=== PATIENT | male | born 1940 | race African-American/Black ===

== ENCOUNTER 2018-04-02 12:04 | Inpatient (IN) | payer MEDICARE, OTHER ==
[~2018-04-02] VITALS: Ht 188 cm; Wt 104.0 kg
[2018-04-02] MEDS ORDERED: SODIUM CHLORIDE 0.9% 1,000 ML IV ONE (13:24)
[2018-04-02 13:46] LABS: Basophils # (auto) 0 uL; Basophils % (auto) 0.3 % (0.0-2.0); Eosinophils # (auto) 0 uL; Eosinophils % (auto) 0.6 % (0.0-7.0); Hematocrit 38.2 % (41.0-53.0); Hemoglobin 12.7 g/dL (13.5-17.5); Lymphocytes # (auto) 0.6 uL; Lymphocytes % (auto) 12.9 % (10.0-50.0); Mean Corpuscular Hemoglobin 30.5 pg (28.0-32.0); Mean Corpuscular Hgb Conc. 33.2 g/dL (32.0-36.0); Mean Corpuscular Volume 91.8 fL (80.0-100.0); Monocytes # (auto) 0.4 uL; Monocytes % (auto) 7.6 % (0.0-12.0); Neutrophils # (auto) 3.7 uL; Neutrophils % (auto) 78.6 % (37.0-80.0); Nucleated Red Blood Cells % 0.3 %; Platelet Count (auto) 148 10^3/uL (140-450); Red Blood Cells 4.16 10^6/uL (4.5-5.90); Red Cell Distribution Width 14.9 % (11.8-14.3); White Blood Cell 4.6 10^3/uL (4.4-10.8)
[2018-04-02 13:59] LABS: INR 1.04 (0.9-1.15); Partial Thromboplastin Time 22.5 sec (23.78-33.04); Prothrombin Time 11.1 sec (9.27-12.13)
[2018-04-02 14:04] LABS: Chloride 112 mmol/L (98-107); Potassium 3.6 mmol/L (3.5-5.1); Sodium 145 mmol/L (136-145)
[2018-04-02 14:08] LABS: Alanine Aminotransferase 16 U/L (16-61); Albumin 3.4 g/dL (3.4-5.0); Anion Gap 6 (5-15); Aspartate Aminotransferase 11 U/L (15-37); BUN/Creatinine Ratio 7.8; Blood Urea Nitrogen 10 mg/dL (7-18); Calcium 8.2 mg/dL (8.5-10.1); Carbon Dioxide 27 mmol/L (21-32); GFR African American 69 mL/min; GFR Non-African American 57 mL/min; Glucose 125 mg/dL (74-106)
[2018-04-02 14:14] LABS: Alkaline Phosphatase 48 U/L (45-117); Bilirubin, Total 0.5 mg/dL (0.2-1.0)
[2018-04-02] MEDS ORDERED: cefTRIAXone 1GM/10ml IVPUSH 10 ML IV ONE (14:45)
[2018-04-02] MEDS ORDERED: DEXTROSE (50%) 50ML SYRG IV PRN (15:00)
[2018-04-02] MEDS ORDERED: DIPHENOXYLATE W/ATROPINE 2.5 MG TAB PO PRN (15:00)
[2018-04-02] MEDS ORDERED: PSEUDOEPHEDRINE HCL 30 MG TAB PO PRN (15:00)
[2018-04-02] MEDS ORDERED: SODIUM CHLORIDE 0.9% 1,000 ML IV SCH (15:02)
[2018-04-02] MEDS ORDERED: ONDANSETRON HCL 4 MG/2 ML VIAL IV PRN (15:15)
[2018-04-02] MEDS ORDERED: DOCUSATE SOD 100 MG CAP PO PRN (15:15)
[2018-04-02] MEDS ORDERED: MORPHINE SULFATE 4 MG/ML SYR/VIAL IV PRN (15:15)
[2018-04-02] MEDS ORDERED: HYDROcodone-ACET 5/325MG TAB PO PRN (15:15)
[2018-04-02] MEDS ORDERED: ASPirin-EC 81 mg tab PO ONE ×3 (15:15→16:00)
[2018-04-02] MEDS ORDERED: ACETAMINOPHEN 325 MG TAB PO PRN (15:15)
[2018-04-02] MEDS ORDERED: NITROGLYCERIN 0.4 MG SL TAB SL PRN (15:15)
[2018-04-02] MEDS ORDERED: TEMAZEPAM 15 MG CAP PO PRN (15:15)
[2018-04-02] MEDS ORDERED: POTASSIUM EFFERVESENT TAB 25 MEQ PO ONE (15:45)
[2018-04-02] MEDS ORDERED: DABIGATRAN 75 MG CAP PO ONE (15:45)
[2018-04-02] MEDS ORDERED: FAMOTIDINE 20 MG TAB PO ONE (15:45)
[2018-04-02] MEDS ORDERED: LOPERAMIDE HCL 2 MG CAP PO PRN (15:45)
[2018-04-02] MEDS ORDERED: ENOXAPARIN SOD 40 MG/0.4 ML SYRINGE SC ONE (15:45)
[2018-04-02] MEDS: InsuLIN REG 1unit/0.01ml Soln (100units/ml) SC SCH ×2 (16:59→21:42)
[2018-04-02] MEDS: ACCU-CHEK COMFORT CURVE STRIP VI SCH ×2 (17:00→21:42)
[2018-04-02 20:01] LABS: Folate (Folic Acid) 11.39 ng/mL (5.38-24)
[2018-04-02] MEDS: SODIUM CHLORIDE 0.9% 1,000 ML IV SCH (20:26)
[2018-04-02 20:50] VITALS: BP 158/83
[2018-04-02] MEDS: DONEPEZIL HYDROCHLORIDE 5 MG TAB PO SCH (21:37)
[2018-04-02] MEDS: ATORVASTATIN 20 MG TAB PO SCH (21:37)
[2018-04-02 22:00] VITALS: BP 158/83
[2018-04-02] MEDS: DABIGATRAN 75 MG CAP PO SCH (22:17)
[2018-04-02] MEDS: cloNIDine HCL 0.1 MG TAB PO PRN (23:04)
[2018-04-03] VITALS (7 sets, daily range): BP systolic 140–165; BP diastolic 75–86
[2018-04-03] MEDS ORDERED: POM (00:06)
[2018-04-03] MEDS ORDERED: FAMO-12 PO (00:06)
[2018-04-03] MEDS ORDERED: PSEU30TA3 PO (00:06)
[2018-04-03] MEDS ORDERED: DONETAB6 PO (00:06)
[2018-04-03] MEDS ORDERED: IRBE150T57 PO (00:06)
[2018-04-03] MEDS ORDERED: DABI150C PO (00:06)
[2018-04-03] MEDS ORDERED: METF-370 PO (00:06)
[2018-04-03] MEDS ORDERED: POTA20TA53 PO (00:06)
[2018-04-03] MEDS ORDERED: MEMA5TAB2 PO (00:06)
[2018-04-03] MEDS ORDERED: OME20T PO (00:06)
[2018-04-03] MEDS: cloNIDine HCL 0.1 MG TAB PO PRN (04:47)
[2018-04-03] MEDS: ACCU-CHEK COMFORT CURVE STRIP VI SCH ×4 (06:17→21:46)
[2018-04-03] MEDS: InsuLIN REG 1unit/0.01ml Soln (100units/ml) SC SCH ×4 (06:17→21:46)
[2018-04-03 07:35] LABS: Basophils # (auto) 0 uL; Basophils % (auto) 0.5 % (0.0-2.0); Eosinophils # (auto) 0.1 uL; Eosinophils % (auto) 1.7 % (0.0-7.0); Hematocrit 34.2 % (41.0-53.0); Hemoglobin 11.4 g/dL (13.5-17.5); Lymphocytes % (auto) 28.4 % (10.0-50.0); Mean Corpuscular Hemoglobin 30.4 pg (28.0-32.0); Mean Corpuscular Hgb Conc. 33.3 g/dL (32.0-36.0); Mean Corpuscular Volume 91.2 fL (80.0-100.0); Monocytes # (auto) 0.5 uL; Monocytes % (auto) 12.9 % (0.0-12.0); Neutrophils % (auto) 56.5 % (37.0-80.0); Nucleated Red Blood Cells % 0.1 %; Platelet Count (auto) 133 10^3/uL (140-450); Red Blood Cells 3.74 10^6/uL (4.5-5.90); Red Cell Distribution Width 15.2 % (11.8-14.3); White Blood Cell 3.5 10^3/uL (4.4-10.8)
[2018-04-03 07:52] LABS: Albumin 3.1 g/dL (3.4-5.0); Bilirubin, Total 0.5 mg/dL (0.2-1.0); Calcium 7.9 mg/dL (8.5-10.1); Potassium 3.5 mmol/L (3.5-5.1); Total Protein 6.3 g/dL (6.4-8.2)
[2018-04-03] MEDS ORDERED: cefTRIAXone 1GM/10ml IVPUSH 10 ML IV SCH (09:00)
[2018-04-03] MEDS: ENZALUTAMIDE 40 MG PO SCH (10:00)
[2018-04-03] MEDS ORDERED: ENOXAPARIN SOD 40 MG/0.4 ML SYRINGE SC SCH (10:00)
[2018-04-03] MEDS: AVALIDE PO SCH (10:00)
[2018-04-03] MEDS: ASPirin-EC 81 mg tab PO SCH (10:02)
[2018-04-03] MEDS: POTASSIUM EFFERVESENT TAB 25 MEQ PO SCH (10:03)
[2018-04-03] MEDS: FAMOTIDINE 20 MG TAB PO SCH (10:03)
[2018-04-03] MEDS: DABIGATRAN 75 MG CAP PO SCH ×2 (10:03→21:39)
[2018-04-03] MEDS: MULTIPLE VITAMIN TAB PO SCH (10:03)
[2018-04-03 10:33] LABS: % Iron Saturation 23.9 % (20-55)
[2018-04-03] MEDS: SODIUM CHLORIDE 0.9% 1,000 ML IV SCH (13:03)
[2018-04-03] MEDS ORDERED: CYANOCOBALAMIN (B-12) 1000 MCG/1 ML VIAL IM ONE (17:30)
[2018-04-03] MEDS: ATORVASTATIN 20 MG TAB PO SCH (21:40)
[2018-04-03] MEDS: DONEPEZIL HYDROCHLORIDE 5 MG TAB PO SCH (21:40)
[2018-04-04] VITALS (7 sets, daily range): BP systolic 107–168; BP diastolic 60–91
[2018-04-04] MEDS: SODIUM CHLORIDE 0.9% 1,000 ML IV SCH (05:25)
[2018-04-04 05:45] LABS: Urine Bacteria NONE SEEN /hpf (None Seen); Urine Blood Negative /uL (Negative); Urine Specific Gravity 1.009 (1.001-1.035); Urine WBC <1 /hpf (0 - 3)
[2018-04-04 06:39] LABS: Basophils # (auto) 0 uL; Basophils % (auto) 0.4 % (0.0-2.0); Eosinophils # (auto) 0.1 uL; Eosinophils % (auto) 2.6 % (0.0-7.0); Hematocrit 35.6 % (41.0-53.0); Lymphocytes # (auto) 1.1 uL; Lymphocytes % (auto) 31.8 % (10.0-50.0); Mean Corpuscular Hemoglobin 30.9 pg (28.0-32.0); Mean Corpuscular Hgb Conc. 33.6 g/dL (32.0-36.0); Monocytes # (auto) 0.4 uL; Monocytes % (auto) 12.2 % (0.0-12.0); Neutrophils # (auto) 1.8 uL; Nucleated Red Blood Cells % 0.3 %; Platelet Count (auto) 138 10^3/uL (140-450); Red Blood Cells 3.87 10^6/uL (4.5-5.90); Red Cell Distribution Width 15.2 % (11.8-14.3); White Blood Cell 3.4 10^3/uL (4.4-10.8)
[2018-04-04] MEDS: InsuLIN REG 1unit/0.01ml Soln (100units/ml) SC SCH ×3 (06:47→16:49)
[2018-04-04] MEDS: ACCU-CHEK COMFORT CURVE STRIP VI SCH ×3 (06:48→16:49)
[2018-04-04 07:02] LABS: BUN/Creatinine Ratio 8.3; Calcium 8.3 mg/dL (8.5-10.1); Potassium 3.5 mmol/L (3.5-5.1)
[2018-04-04] MEDS: ASPirin-EC 81 mg tab PO SCH (09:48)
[2018-04-04] MEDS: DABIGATRAN 75 MG CAP PO SCH (09:48)
[2018-04-04] MEDS: FAMOTIDINE 20 MG TAB PO SCH (09:48)
[2018-04-04] MEDS: MULTIPLE VITAMIN TAB PO SCH (09:48)
[2018-04-04] MEDS: ENZALUTAMIDE 40 MG PO SCH (09:49)
[2018-04-04] MEDS: AVALIDE PO SCH (09:49)
[2018-04-04] MEDS: POTASSIUM EFFERVESENT TAB 25 MEQ PO SCH (09:49)
[2018-04-04] MEDS ORDERED: CYANOCOBALAMIN 500 MCG TAB PO SCH (10:00)
== END 2018-04-04 18:44 | disposition home health service (06) | DRG 70 ==
LOC: EDBD 12:04 → ER 12:10 → TELE 12:11 → TELE-WESTW 20:40
PROVIDERS: ADMIT Internal Medicine; ATTEND Internal Medicine
DX: G93.40 Encephalopathy, unspecified (principal); N17.0 Acute kidney failure with tubular necrosis; G45.9 Transient cerebral ischemic attack, unspecified; E44.1 Mild protein-calorie malnutrition; J98.11 Atelectasis; C79.51 Secondary malignant neoplasm of bone; R55 Syncope and collapse; E11.21 Type 2 diabetes mellitus with diabetic nephropathy; N18.2 Chronic kidney disease, stage 2 (mild); I12.9 Hypertensive chronic kidney disease with stage 1 through stage 4 chronic kidney disease, or unspecified chronic kidney disease; E11.22 Type 2 diabetes mellitus with diabetic chronic kidney disease; D63.8 Anemia in other chronic diseases classified elsewhere; F03.90 Unspecified dementia, unspecified severity, without behavioral disturbance, psychotic disturbance, mood disturbance, and anxiety; E83.51 Hypocalcemia; C61 Malignant neoplasm of prostate; D69.6 Thrombocytopenia, unspecified; J44.9 Chronic obstructive pulmonary disease, unspecified; Z79.02 Long term (current) use of antithrombotics/antiplatelets; Z79.82 Long term (current) use of aspirin; Z79.899 Other long term (current) drug therapy; Z82.0 Family history of epilepsy and other diseases of the nervous system; Z82.49 Family history of ischemic heart disease and other diseases of the circulatory system; Z83.3 Family history of diabetes mellitus; Z86.711 Personal history of pulmonary embolism; Z90.79 Acquired absence of other genital organ(s); Z79.4 Long term (current) use of insulin; Z88.8 Allergy status to other drugs, medicaments and biological substances; Z68.29 Body mass index [BMI] 29.0-29.9, adult; I35.1 Nonrheumatic aortic (valve) insufficiency; E53.8 Deficiency of other specified B group vitamins; D17.0 Benign lipomatous neoplasm of skin and subcutaneous tissue of head, face and neck; I67.2 Cerebral atherosclerosis; W07.XXXA Fall from chair, initial encounter; Y93.89 Activity, other specified; Y92.531 Health care provider office as the place of occurrence of the external cause; Y99.8 Other external cause status
CPT/HCPCS: 36415; 70450; 70551; 71045; 80048; 80053; 81001; 82607; 82746; 82962; 83036; 83540; 83550; 83880; 84443; 84484; 85025; 85610; 85730; 87081; 93005; 93306; 93886; 95819; 96361; 96372; 96374; 97163; J0696

== ENCOUNTER 2023-10-16 11:11 | Inpatient (IN) | payer MEDICARE, OTHER ==
[~2023-10-16] VITALS: Ht 152.4 cm; Wt 65.5 kg
[~2023-10-16 11:11] MED LIST: DABI150C5 PO; DONETAB6 PO; FAMO-12 PO; IRBE150T57 PO; MEMA5TAB2 PO; METF-370 PO; OME20T PO; POM; POTA-220 PO; PSEU30TA3 PO
[2023-10-16 11:54] LABS: Basophils # (auto) 0 10 ^3/uL (0-0.2); Basophils % (auto) 0.4 % (0.0-2.0); Eosinophils # (auto) 0.1 10 ^3/uL (0-0.8); Hematocrit 33.1 % (41.0-53.0); Hemoglobin 10.4 g/dL (13.5-17.5); Lymphocytes # (auto) 2.1 10 ^3/uL (0.4-5.4); Lymphocytes % (auto) 30.8 % (10.0-50.0); Mean Corpuscular Hemoglobin 27.5 pg (28.0-32.0); Mean Corpuscular Hgb Conc. 31.4 g/dL (32.0-36.0); Mean Corpuscular Volume 87.4 fL (80.0-100.0); Monocytes # (auto) 0.7 10 ^3/uL (0-1.3); Monocytes % (auto) 9.8 % (0.0-12.0); Neutrophils # (auto) 3.8 10 ^3/uL (1.6-8.6); Nucleated Red Blood Cells % 0.1 %; Red Blood Cells 3.79 10^6/uL (4.5-5.90); Red Cell Distribution Width 19.3 % (11.8-14.3); White Blood Cell 6.7 10^3/uL (4.4-10.8)
[2023-10-16 12:14] LABS: Albumin 3.5 g/dL (3.2-4.8); Alkaline Phosphatase 78 U/L (46-116); Anion Gap 8 (5-15); Aspartate Aminotransferase 16 U/L (13-40); BUN/Creatinine Ratio 8.9 (10.0-20.0); Blood Urea Nitrogen 15 mg/dL (9-23); Carbon Dioxide 23 mmol/L (20-30); Chloride 111 mmol/L (98-107); Glucose 104 mg/dL (74-106); Potassium 3.8 mmol/L (3.5-5.1); Sodium 142 mmol/L (136-145)
[2023-10-16 12:15] LABS: Alanine Aminotransferase 9 U/L (7-40); Bilirubin, Total 0.4 mg/dL (0.2-1.0)
[2023-10-16 12:25] LABS: Lipase 37 U/L (12-53)
[2023-10-16 12:40] LABS: INR 1.24 (0.9-1.15); Prothrombin Time 12.8 sec (9.3-11.8)
[2023-10-16 13:19] LABS: Acetaminophen < 2.0 UG/ML (10.0-20.0)
[2023-10-16 13:20] LABS: Salicylate < 3.0 mg/dL (2.8-20.0)
[2023-10-16] MEDS ORDERED: ATOR20TA50 PO (17:09)
[2023-10-16] MEDS ORDERED: APIX5TAB PO (17:09)
[2023-10-16] MEDS ORDERED: AMIO200T13 PO (17:09)
[2023-10-16] MEDS ORDERED: DOCUSATE SOD 100 MG CAP PO PRN (17:15)
[2023-10-16] MEDS ORDERED: ONDANSETRON HCL 4 MG/2 ML VIAL IV PRN (17:15)
[2023-10-16] MEDS ORDERED: ACETAMINOPHEN 325 MG TAB PO PRN (17:15)
[2023-10-16] MEDS ORDERED: DEXTROSE (50%) 50ML SYRG IV PRN (17:30)
[2023-10-16] MEDS ORDERED: ALBUTEROL SULF 2.5 MG/0.5ML(0.5%) NEB SOLN NEB PRN (17:30)
[2023-10-16] MEDS: SODIUM CHLORIDE 0.9% 1,000 ML IV ONE (17:30)
[2023-10-16] MEDS ORDERED: IPRATROPIUM BROM 0.5 MG/2.5ML INH SOL NEB PRN (17:30)
[2023-10-16] MEDS: ASPirin-EC 325mg tab PO ONE (17:30)
[2023-10-16 19:11] VITALS: BP 115/71; PULSE 60; RESP 16; TEMP 97.6; O2SAT 96
[2023-10-16 19:15] VITALS: O2SAT 96
[2023-10-17] MEDS: ACCU-CHEK COMFORT CURVE STRIP VI SCH (02:42)
[2023-10-17] MEDS: cefTRIAXone 1GM/50ML D5W 50 ML IV ONE (02:42)
[2023-10-17] MEDS: AMIODARONE HCL 200 MG TAB PO SCH (02:54)
[2023-10-17] MEDS: InsuLIN REG 1unit/0.01ml Soln (100units/ml) SC SCH (02:56)
[2023-10-17 07:24] LABS: Basophils # (auto) 0 10 ^3/uL (0-0.2); Basophils % (auto) 0.8 % (0.0-2.0); Eosinophils # (auto) 0.1 10 ^3/uL (0-0.8); Eosinophils % (auto) 1.8 % (0.0-7.0); Hematocrit 34.2 % (41.0-53.0); Hemoglobin 11.3 g/dL (13.5-17.5); Lymphocytes # (auto) 1.2 10 ^3/uL (0.4-5.4); Lymphocytes % (auto) 20.8 % (10.0-50.0); Mean Corpuscular Hemoglobin 28.4 pg (28.0-32.0); Mean Corpuscular Volume 86.1 fL (80.0-100.0); Monocytes # (auto) 0.6 10 ^3/uL (0-1.3); Monocytes % (auto) 10.7 % (0.0-12.0); Neutrophils # (auto) 3.8 10 ^3/uL (1.6-8.6); Neutrophils % (auto) 65.9 % (37.0-80.0); Nucleated Red Blood Cells % 0.1 %; Red Blood Cells 3.97 10^6/uL (4.5-5.90); Red Cell Distribution Width 18.9 % (11.8-14.3); White Blood Cell 5.8 10^3/uL (4.4-10.8)
[2023-10-17 07:49] LABS: Albumin 3.8 g/dL (3.2-4.8); Alkaline Phosphatase 80 U/L (46-116); Anion Gap 7 (5-15); BUN/Creatinine Ratio 5.8 (10.0-20.0); Blood Urea Nitrogen 9 mg/dL (9-23); Calcium 9.3 mg/dL (8.5-10.1); Carbon Dioxide 23 mmol/L (20-30); Chloride 113 mmol/L (98-107); Glucose 101 mg/dL (74-106); Potassium 4.5 mmol/L (3.5-5.1); Sodium 143 mmol/L (136-145)
[2023-10-17 07:50] LABS: Aspartate Aminotransferase 15 U/L (13-40); Bilirubin, Total 0.5 mg/dL (0.2-1.0); Total Protein 6.8 g/dL (5.7-8.2)
[2023-10-17 07:58] LABS: Alanine Aminotransferase < 9 U/L (7-40)
[2023-10-17 08:00] VITALS: PULSE 74; RESP 20; O2SAT 96
[2023-10-17] MEDS: cefTRIAXone 1GM/50ML D5W 50 ML IV SCH (09:16)
[2023-10-17] MEDS: ATORVASTATIN 20 MG TAB PO SCH (11:13)
[2023-10-17 15:14] LABS: Free T4 (Free Thyroxine) 1.23 ng/dL (0.89-1.76)
[2023-10-17 22:58] VITALS: O2SAT 95
[2023-10-17 23:13] VITALS: PULSE 88; RESP 16; O2SAT 97
[2023-10-18] VITALS (8 sets, daily range): BP systolic 104–155; BP diastolic 63–74; PULSE 59–73; RESP 16–18; TEMP 97.8–98.7; O2SAT 95–96
[2023-10-18] MEDS: CYANOCOBALAMIN (B-12) 1000 MCG/1 ML VIAL IM ONE (02:52)
[2023-10-18 08:06] LABS: PSA Free 7.14 ng/mL
[2023-10-19] VITALS (7 sets, daily range): BP systolic 111–134; BP diastolic 56–79; PULSE 64–71; RESP 15–19; TEMP 98–98.1; O2SAT 95–100
[2023-10-19 07:08] LABS: Chloride 112 mmol/L (98-107); Potassium 3.7 mmol/L (3.5-5.1); Sodium 145 mmol/L (136-145)
[2023-10-19 07:09] LABS: Anion Gap 8 (5-15); Calcium 9.1 mg/dL (8.5-10.1); Carbon Dioxide 25 mmol/L (20-30)
[2023-10-19 07:14] LABS: BUN/Creatinine Ratio 6.7 (10.0-20.0); Blood Urea Nitrogen 11 mg/dL (9-23); Glucose 88 mg/dL (74-106)
[2023-10-19] MEDS: CYANOCOBALAMIN (B-12) 1000 MCG/1 ML VIAL IM ONE (11:51)
[2023-10-19] MEDS ORDERED: TEMA15CA2 PO (11:57)
[2023-10-19] MEDS ORDERED: ERGO1CAP12 PO (11:57)
[2023-10-20] VITALS (7 sets, daily range): BP systolic 109–135; BP diastolic 56–74; PULSE 55–101; RESP 16–20; TEMP 97.5–98.5; O2SAT 91–100
[2023-10-20 05:44] LABS: Chloride 114 mmol/L (98-107); Potassium 3.6 mmol/L (3.5-5.1); Sodium 145 mmol/L (136-145)
[2023-10-20 05:45] LABS: Anion Gap 7 (5-15); Carbon Dioxide 24 mmol/L (20-30)
[2023-10-20 05:46] LABS: Calcium 9.1 mg/dL (8.7-10.4)
[2023-10-20 05:50] LABS: Glucose 91 mg/dL (74-106)
[2023-10-20 05:51] LABS: BUN/Creatinine Ratio 6.2 (10.0-20.0); Blood Urea Nitrogen 10 mg/dL (9-23)
[2023-10-20] MEDS: ENOXAPARIN SOD 40 MG/0.4 ML SYRINGE SC SCH (08:55)
[2023-10-21] VITALS (7 sets, daily range): BP systolic 110–136; BP diastolic 57–76; PULSE 60–77; RESP 18–19; TEMP 97.6–98.4; O2SAT 94–99
[2023-10-22 05:00] VITALS: BP 119/59; PULSE 64; RESP 18; TEMP 97.5; O2SAT 96
[2023-10-22 08:05] VITALS: BP 96/64; PULSE 74; RESP 18; TEMP 97.4; O2SAT 99
[2023-10-22 12:05] VITALS: BP 105/66; PULSE 64; RESP 20; TEMP 98; O2SAT 99
[2023-10-22 17:00] VITALS: BP 110/63; PULSE 74; RESP 20; TEMP 98.3; O2SAT 100
[2023-10-22 20:00] VITALS: RESP 16; O2SAT 98
[2023-10-23] VITALS (8 sets, daily range): BP systolic 108–123; BP diastolic 49–74; PULSE 60–77; RESP 1–18; TEMP 97.7–98; O2SAT 92–100
[2023-10-23 06:46] LABS: Basophils # (auto) 0 10 ^3/uL (0-0.2); Basophils % (auto) 0.7 % (0.0-2.0); Eosinophils # (auto) 0.2 10 ^3/uL (0-0.8); Eosinophils % (auto) 2.7 % (0.0-7.0); Hemoglobin 9.9 g/dL (13.5-17.5); Lymphocytes # (auto) 1.6 10 ^3/uL (0.4-5.4); Lymphocytes % (auto) 24.1 % (10.0-50.0); Mean Corpuscular Hemoglobin 27.1 pg (28.0-32.0); Mean Corpuscular Volume 84.9 fL (80.0-100.0); Monocytes # (auto) 0.7 10 ^3/uL (0-1.3); Monocytes % (auto) 10.4 % (0.0-12.0); Neutrophils # (auto) 4.2 10 ^3/uL (1.6-8.6); Neutrophils % (auto) 62.1 % (37.0-80.0); Red Blood Cells 3.65 10^6/uL (4.5-5.90); Red Cell Distribution Width 19.1 % (11.8-14.3); White Blood Cell 6.7 10^3/uL (4.4-10.8)
[2023-10-23 06:55] LABS: Calcium 9.6 mg/dL (8.5-10.1); Chloride 111 mmol/L (98-107); Potassium 4.1 mmol/L (3.5-5.1); Sodium 148 mmol/L (136-145)
[2023-10-23 06:56] LABS: Anion Gap 8 (5-15); Carbon Dioxide 29 mmol/L (20-30)
[2023-10-23 07:01] LABS: BUN/Creatinine Ratio 10.4 (10.0-20.0); Blood Urea Nitrogen 17 mg/dL (9-23); Glucose 98 mg/dL (74-106)
[2023-10-23 11:14] LABS: INR 1.16 (0.9-1.15); Partial Thromboplastin Time 30.3 SEC (24.5-34.5); Prothrombin Time 12.1 sec (9.3-11.8)
[2023-10-23 11:21] LABS: Basophils # (auto) 0 10 ^3/uL (0-0.2); Basophils % (auto) 0.5 % (0.0-2.0); Eosinophils # (auto) 0.2 10 ^3/uL (0-0.8); Eosinophils % (auto) 2.4 % (0.0-7.0); Hematocrit 31.9 % (41.0-53.0); Hemoglobin 10.4 g/dL (13.5-17.5); Lymphocytes # (auto) 1.4 10 ^3/uL (0.4-5.4); Lymphocytes % (auto) 20.6 % (10.0-50.0); Mean Corpuscular Hemoglobin 27.9 pg (28.0-32.0); Mean Corpuscular Hgb Conc. 32.7 g/dL (32.0-36.0); Mean Corpuscular Volume 85.3 fL (80.0-100.0); Monocytes # (auto) 0.7 10 ^3/uL (0-1.3); Neutrophils # (auto) 4.3 10 ^3/uL (1.6-8.6); Neutrophils % (auto) 65.5 % (37.0-80.0); Nucleated Red Blood Cells % 0.1 %; Red Blood Cells 3.74 10^6/uL (4.5-5.90); Red Cell Distribution Width 19.4 % (11.8-14.3); White Blood Cell 6.6 10^3/uL (4.4-10.8)
[2023-10-23] MEDS ORDERED: fentaNYL CITRATE 100 MCG/2 ML VL ONE (12:02)
[2023-10-23] MEDS ORDERED: DexAMETHasone SOD PHOS 10MG/1ML VIAL INJ ONE (12:12)
[2023-10-23] MEDS ORDERED: MIDAZOLAM HCL 2MG/2ML 2ml VIAL (1mg/ml) ONE (12:12)
[2023-10-23] MEDS ORDERED: PROPOFOL 10 MG/ML 20 ML IV ONE (12:12)
[2023-10-23] MEDS ORDERED: ONDANSETRON HCL 4 MG/2 ML VIAL IV PRN (12:45)
[2023-10-23] MEDS ORDERED: LABETALOL HCL 5 MG/ML 4ML SYRINGE IV PRN (12:45)
[2023-10-23] MEDS ORDERED: ePHEDrine SULFATE 50 MG/ML AMP IV PRN (12:45)
[2023-10-23] MEDS ORDERED: MIDAZOLAM HCL 2MG/2ML 2ml VIAL (1mg/ml) IV PRN (12:45)
[2023-10-23] MEDS ORDERED: MORPHINE SULFATE 4 MG/ML SYR/VIAL IV PRN (12:45)
[2023-10-24 05:00] VITALS: BP 129/75; PULSE 77; RESP 18; TEMP 98.4; O2SAT 99
[2023-10-24 05:00] LABS: Basophils # (auto) 0 10 ^3/uL (0-0.2); Basophils % (auto) 0.2 % (0.0-2.0); Eosinophils # (auto) 0 10 ^3/uL (0-0.8); Hematocrit 31.6 % (41.0-53.0); Hemoglobin 10.2 g/dL (13.5-17.5); Lymphocytes # (auto) 0.6 10 ^3/uL (0.4-5.4); Mean Corpuscular Hemoglobin 27.4 pg (28.0-32.0); Mean Corpuscular Hgb Conc. 32.2 g/dL (32.0-36.0); Mean Corpuscular Volume 85.2 fL (80.0-100.0); Monocytes # (auto) 0.6 10 ^3/uL (0-1.3); Monocytes % (auto) 5.6 % (0.0-12.0); Neutrophils # (auto) 8.8 10 ^3/uL (1.6-8.6); Neutrophils % (auto) 88.2 % (37.0-80.0); Red Cell Distribution Width 19.4 % (11.8-14.3)
[2023-10-24 05:07] LABS: Anion Gap 8 (5-15); Carbon Dioxide 28 mmol/L (20-30); Chloride 111 mmol/L (98-107); Potassium 4.2 mmol/L (3.5-5.1); Sodium 147 mmol/L (136-145)
[2023-10-24 05:08] LABS: Calcium 9.5 mg/dL (8.5-10.1)
[2023-10-24 05:13] LABS: BUN/Creatinine Ratio 9.8 (10.0-20.0); Blood Urea Nitrogen 17 mg/dL (9-23); Glucose 131 mg/dL (74-106)
[2023-10-24 08:00] VITALS: PULSE 77; RESP 18; O2SAT 98
[2023-10-24 09:00] VITALS: BP 114/67; PULSE 70; RESP 18; TEMP 98; O2SAT 94
[2023-10-24 13:00] VITALS: BP 112/67; PULSE 83; RESP 18; TEMP 98; O2SAT 93
== END 2023-10-24 16:54 | disposition home or self-care (01) | DRG 715 ==
LOC: ER 11:11 → EDBD 11:11 → OVERFLOW 17:08 → WEST WING 10-17 23:51 → TELE-WESTW 10-18 15:11 → WEST WING 10-21 12:53
PROVIDERS: ADMIT Nurse Practitioner Family; ATTEND Internal Medicine
PROC: 0T5C8ZZ Destruction of Bladder Neck, Via Natural or Artificial Opening Endoscopic (ICD-10-PCS; 2023-10-23)
PROC: 0T7D8ZZ Dilation of Urethra, Via Natural or Artificial Opening Endoscopic (ICD-10-PCS; 2023-10-23)
PROC: 0TCB8ZZ Extirpation of Matter from Bladder, Via Natural or Artificial Opening Endoscopic (ICD-10-PCS; principal; 2023-10-23 12:10)
DX: C61 Malignant neoplasm of prostate (principal); G93.41 Metabolic encephalopathy; N17.0 Acute kidney failure with tubular necrosis; I13.0 Hypertensive heart and chronic kidney disease with heart failure and stage 1 through stage 4 chronic kidney disease, or unspecified chronic kidney disease; C79.51 Secondary malignant neoplasm of bone; I50.22 Chronic systolic (congestive) heart failure; N13.6 Pyonephrosis; R55 Syncope and collapse; N18.30 Chronic kidney disease, stage 3 unspecified; E11.22 Type 2 diabetes mellitus with diabetic chronic kidney disease; D63.8 Anemia in other chronic diseases classified elsewhere; R91.1 Solitary pulmonary nodule; J44.9 Chronic obstructive pulmonary disease, unspecified; R31.9 Hematuria, unspecified; N32.0 Bladder-neck obstruction; R32 Unspecified urinary incontinence; R00.1 Bradycardia, unspecified; G90.8 Other disorders of autonomic nervous system; F02.80 Dementia in other diseases classified elsewhere, unspecified severity, without behavioral disturbance, psychotic disturbance, mood disturbance, and anxiety; I48.0 Paroxysmal atrial fibrillation; E78.5 Hyperlipidemia, unspecified; F03.90 Unspecified dementia, unspecified severity, without behavioral disturbance, psychotic disturbance, mood disturbance, and anxiety; Z74.01 Bed confinement status; Z79.01 Long term (current) use of anticoagulants; Z79.84 Long term (current) use of oral hypoglycemic drugs; Z85.46 Personal history of malignant neoplasm of prostate; Z86.711 Personal history of pulmonary embolism; Z83.3 Family history of diabetes mellitus; Z87.891 Personal history of nicotine dependence; Z90.79 Acquired absence of other genital organ(s)
CPT/HCPCS: 36415; 70450; 71045; 76775; 78306; 80048; 80053; 80320; 80329; 82140; 82270; 82607; 82962; 83690; 83735; 83880; 84154; 84439; 84443; 84484; 85025; 85610; 85730; 86850; 86900; 86901; 87081; 93005; 93306; G0378; J1100; J2250; J2704

== ENCOUNTER 2023-11-03 11:36 | Emergency (ER) | payer MEDICARE, OTHER ==
[~2023-11-03] VITALS: Ht 185.4 cm; Wt 54.5 kg
[~2023-11-03 11:36] MED LIST changes: +AMIO200T13 PO; +APIX5TAB PO; +ATOR20TA50 PO; +ERGO1CAP12 PO; +TEMA15CA2 PO
[2023-11-03 12:13] LABS: Basophils # (auto) 0 10 ^3/uL (0-0.2); Basophils % (auto) 0.5 % (0.0-2.0); Eosinophils # (auto) 0.2 10 ^3/uL (0-0.8); Eosinophils % (auto) 2.6 % (0.0-7.0); Hematocrit 29.3 % (41.0-53.0); Hemoglobin 9.3 g/dL (13.5-17.5); Lymphocytes # (auto) 1.5 10 ^3/uL (0.4-5.4); Lymphocytes % (auto) 25.2 % (10.0-50.0); Mean Corpuscular Hemoglobin 27.5 pg (28.0-32.0); Mean Corpuscular Hgb Conc. 31.8 g/dL (32.0-36.0); Mean Corpuscular Volume 86.5 fL (80.0-100.0); Monocytes # (auto) 0.6 10 ^3/uL (0-1.3); Monocytes % (auto) 10.7 % (0.0-12.0); Neutrophils # (auto) 3.6 10 ^3/uL (1.6-8.6); Nucleated Red Blood Cells % 0.1 %; Red Blood Cells 3.38 10^6/uL (4.5-5.90); Red Cell Distribution Width 20.9 % (11.8-14.3); White Blood Cell 5.9 10^3/uL (4.4-10.8)
[2023-11-03 12:37] LABS: Chloride 113 mmol/L (98-107); Potassium 3.7 mmol/L (3.5-5.1); Sodium 142 mmol/L (136-145)
[2023-11-03 12:38] LABS: Anion Gap 3 (5-15); Calcium 8.2 mg/dL (8.7-10.4); Carbon Dioxide 26 mmol/L (20-30)
[2023-11-03 12:43] LABS: Blood Urea Nitrogen 10 mg/dL (9-23); Glucose 101 mg/dL (74-106)
[2023-11-03 13:59] VITALS: BP 138/73; PULSE 58; RESP 13; O2SAT 100
== END 2023-11-03 14:25 | disposition home or self-care (01) ==
LOC: ER 11:36 → EDBD 11:36 → EDUNIT# 11:36 → ER 14:25
DX: R05.9 Cough, unspecified (principal); I11.0 Hypertensive heart disease with heart failure; I50.9 Heart failure, unspecified; E11.9 Type 2 diabetes mellitus without complications; E78.5 Hyperlipidemia, unspecified; Z11.1 Encounter for screening for respiratory tuberculosis; Z88.8 Allergy status to other drugs, medicaments and biological substances; Z79.899 Other long term (current) drug therapy
CPT/HCPCS: 36415; 71045; 80048; 85025

== ENCOUNTER 2024-03-23 11:35 | Inpatient (IN) | payer OTHER, MEDICARE ==
[~2024-03-23] VITALS: Ht 182.9 cm; Wt 57.0 kg
[2024-03-23 12:01] VITALS: O2SAT 98
[2024-03-23 13:23] LABS: Basophils # (auto) 0 10 ^3/uL (0-0.2); Eosinophils # (auto) 0 10 ^3/uL (0-0.8); Hematocrit 38.1 % (41.0-53.0); Hemoglobin 12.6 g/dL (13.5-17.5); Lymphocytes # (auto) 0.5 10 ^3/uL (0.4-5.4); Lymphocytes % (auto) 4.5 % (10.0-50.0); Mean Corpuscular Hemoglobin 29.1 pg (28.0-32.0); Mean Corpuscular Volume 88.2 fL (80.0-100.0); Monocytes # (auto) 0.5 10 ^3/uL (0-1.3); Monocytes % (auto) 4.6 % (0.0-12.0); Neutrophils # (auto) 10.4 10 ^3/uL (1.6-8.6); Neutrophils % (auto) 90.9 % (37.0-80.0); Red Blood Cells 4.32 10^6/uL (4.5-5.90); Red Cell Distribution Width 17.9 % (11.8-14.3); White Blood Cell 11.4 10^3/uL (4.4-10.8)
[2024-03-23 13:35] LABS: Alanine Aminotransferase 20 U/L (7-40); Albumin 3.8 g/dL (3.2-4.8); Alkaline Phosphatase 102 U/L (46-116); Anion Gap 8 (5-15); Aspartate Aminotransferase 19 U/L (13-40); Blood Urea Nitrogen 33 mg/dL (9-23); Carbon Dioxide 24 mmol/L (20-30); Chloride 105 mmol/L (98-107); Glucose 147 mg/dL (74-106); Potassium 4.5 mmol/L (3.5-5.1); Sodium 137 mmol/L (136-145)
[2024-03-23 13:36] LABS: Bilirubin, Total 0.5 mg/dL (0.2-1.0); Total Protein 6.7 g/dL (5.7-8.2)
[2024-03-23 13:49] LABS: Urine Bacteria None Seen /hpf (None Seen)
[2024-03-23 14:11] LABS: Urine Blood 3+ /uL (Negative); Urine Protein, UAD 2+ (Negative); Urine Specific Gravity 1.015 (1.001-1.035); Urine Urobilinogen Normal (Negative); Urine WBC 2226 /hpf (0 - 3); Urine WBC Clumps PRESENT /hpf (None Seen); Urine pH 6.5 (5.0-9.0)
[2024-03-23 14:12] LABS: Urine Clarity TURBID (Clear); Urine Color Yellow (Yellow)
[2024-03-23 15:01] LABS: Lactic Acid w/Reflex 3.2 mmol/L (0.4-2.0)
[2024-03-23] MEDS: PIPERACILLIN-TAZOB 3.375GM 100 ML IV ONE (15:03)
[2024-03-23 15:51] LABS: INR 1.23 (0.9-1.15); Prothrombin Time 12.8 sec (9.3-11.8)
[2024-03-23] MEDS ORDERED: ONDANSETRON HCL 4 MG/2 ML VIAL IV PRN (17:15)
[2024-03-23] MEDS ORDERED: LORazepam 2MG/ML-1ML VIAL IV PRN ×2 (17:15→21:00)
[2024-03-23] MEDS ORDERED: HYDROmorphone HCL 2 MG/ML VL/or syr IV PRN (17:15)
[2024-03-23] MEDS ORDERED: DEXTROSE (50%) 50ML SYRG IV SCH (17:45)
[2024-03-23] MEDS: InsuLIN REG 1unit/0.01ml Soln (100units/ml) SC SCH (18:00)
[2024-03-23] MEDS: ACCU-CHEK COMFORT CURVE STRIP VI SCH (18:15)
[2024-03-23] MEDS: OXYMETAZOLINE HCL 0.05 % NASAL SPRAY 15ML EACHNOSTRI ONE (18:56)
[2024-03-23] MEDS: LIDOCAINE VISCOUS 2% 15ML UD MT ONE (18:56)
[2024-03-23 20:00] VITALS: PULSE 104; PULSE 98; RESP 18; O2SAT 97
[2024-03-23] MEDS ORDERED: PPN PER PHARMACY 0 ML IV SCH (20:00)
[2024-03-23] MEDS: AMINO ACID INFUSION IN D10W 1,000 ML IV SCH (20:00)
[2024-03-23] MEDS ORDERED: ENOXAPARIN SOD 40 MG/0.4 ML SYRINGE SC ONE (21:00)
[2024-03-23] MEDS: ENOXAPARIN SOD 30 MG/0.3 ML SYRINGE SC ONE (21:47)
[2024-03-23] MEDS: SODIUM CHLOR 0.9% PF (SALINE LOCK) 10ML VIAL/SYR IV SCH (22:00)
[2024-03-23 22:18] VITALS: PULSE 102
[2024-03-23] MEDS: levETIRAcetam 500 mg/100ml 100 ML IV SCH (22:35)
[2024-03-24] VITALS (8 sets, daily range): BP systolic 97–115; BP diastolic 62–73; PULSE 61–110; RESP 16–22; TEMP 97.2–98.7; O2SAT 95–99
[2024-03-24] MEDS ORDERED: PIPERACILLIN-TAZOB 3.375GM 100 ML IV ONE (06:00)
[2024-03-24 06:12] LABS: Alanine Aminotransferase 14 U/L (7-40); Albumin 3.6 g/dL (3.2-4.8); Alkaline Phosphatase 90 U/L (46-116); Anion Gap 8 (5-15); Aspartate Aminotransferase 12 U/L (13-40); BUN/Creatinine Ratio 11.3 (10.0-20.0); Bilirubin, Total 0.6 mg/dL (0.2-1.0); Blood Urea Nitrogen 31 mg/dL (9-23); Calcium 8.6 mg/dL (8.7-10.4); Carbon Dioxide 22 mmol/L (20-30); Chloride 109 mmol/L (98-107); Glucose 141 mg/dL (74-106); Magnesium 2.2 mg/dL (1.6-2.6); Potassium 3.7 mmol/L (3.5-5.1); Sodium 139 mmol/L (136-145); Total Protein 6.7 g/dL (5.7-8.2); Triglycerides 58 mg/dL (< 150)
[2024-03-24 08:15] LABS: Basophils # (auto) 0 10 ^3/uL (0-0.2); Basophils % (auto) 0.1 % (0.0-2.0); Eosinophils # (auto) 0 10 ^3/uL (0-0.8); Hematocrit 34.5 % (41.0-53.0); Hemoglobin 11.7 g/dL (13.5-17.5); Lymphocytes # (auto) 0.7 10 ^3/uL (0.4-5.4); Lymphocytes % (auto) 5.4 % (10.0-50.0); Mean Corpuscular Hemoglobin 29.4 pg (28.0-32.0); Mean Corpuscular Hgb Conc. 33.8 g/dL (32.0-36.0); Mean Corpuscular Volume 86.9 fL (80.0-100.0); Monocytes # (auto) 0.7 10 ^3/uL (0-1.3); Monocytes % (auto) 5.4 % (0.0-12.0); Neutrophils # (auto) 10.9 10 ^3/uL (1.6-8.6); Neutrophils % (auto) 89.1 % (37.0-80.0); Red Blood Cells 3.97 10^6/uL (4.5-5.90); Red Cell Distribution Width 17.8 % (11.8-14.3); White Blood Cell 12.3 10^3/uL (4.4-10.8)
[2024-03-24 08:26] LABS: INR 1.28 (0.9-1.15); Partial Thromboplastin Time 38.2 SEC (24.5-34.5); Prothrombin Time 13.3 sec (9.3-11.8)
[2024-03-24] MEDS ORDERED: ENOXAPARIN SOD 40 MG/0.4 ML SYRINGE SC SCH (10:00)
[2024-03-24] MEDS: ENOXAPARIN SOD 30 MG/0.3 ML SYRINGE SC SCH (10:00)
[2024-03-24] MEDS: PANTOPRAZOLE 40 MG/10 ML VIAL INJ IV SCH (10:43)
[2024-03-24] MEDS: PIPERACILLIN-TAZOB 3.375GM 100 ML IV SCH (10:45)
[2024-03-24] MEDS: SODIUM CHLORIDE 0.9% 1,000 ML IV SCH (13:30)
[2024-03-24] MEDS: MEMANTINE HCL 5 MG TAB PO SCH (15:56)
[2024-03-24] MEDS: PPN PER PHARMACY IV NR (20:47)
[2024-03-24] MEDS: DONEPEZIL HYDROCHLORIDE 5 MG TAB PO SCH (22:48)
[2024-03-24] MEDS: ATORVASTATIN 20 MG TAB PO SCH (22:48)
[2024-03-25] VITALS (8 sets, daily range): BP systolic 103–135; BP diastolic 52–74; PULSE 53–93; RESP 14–20; TEMP 97.4–98.5; O2SAT 90–99
[2024-03-25 05:54] LABS: Basophils # (auto) 0 10 ^3/uL (0-0.2); Basophils % (auto) 0.2 % (0.0-2.0); Eosinophils # (auto) 0.1 10 ^3/uL (0-0.8); Eosinophils % (auto) 0.9 % (0.0-7.0); Hematocrit 31.8 % (41.0-53.0); Hemoglobin 10.8 g/dL (13.5-17.5); Lymphocytes # (auto) 0.7 10 ^3/uL (0.4-5.4); Lymphocytes % (auto) 8.2 % (10.0-50.0); Mean Corpuscular Hemoglobin 29.7 pg (28.0-32.0); Mean Corpuscular Hgb Conc. 34.1 g/dL (32.0-36.0); Mean Corpuscular Volume 87.1 fL (80.0-100.0); Monocytes # (auto) 0.6 10 ^3/uL (0-1.3); Monocytes % (auto) 7.2 % (0.0-12.0); Neutrophils # (auto) 7.2 10 ^3/uL (1.6-8.6); Neutrophils % (auto) 83.5 % (37.0-80.0); Red Blood Cells 3.65 10^6/uL (4.5-5.90); White Blood Cell 8.6 10^3/uL (4.4-10.8)
[2024-03-25 06:01] LABS: Potassium 3.8 mmol/L (3.5-5.1)
[2024-03-25 06:02] LABS: Calcium 8.4 mg/dL (8.7-10.4)
[2024-03-25 06:07] LABS: BUN/Creatinine Ratio 12.8 (10.0-20.0); Magnesium 2.5 mg/dL (1.6-2.6)
[2024-03-25 06:08] LABS: Albumin 3.3 g/dL (3.2-4.8)
[2024-03-25 06:09] LABS: Phosphorus 2.1 mg/dL (2.4-5.1)
[2024-03-25] MEDS: POTASSIUM PHOSPHATE 22 MEQ in SODIUM CHL 0.9% 100 ML IV ONE ×2 (13:28→13:45)
[2024-03-25] MEDS: PPN PER PHARMACY IV NR (20:00)
[2024-03-26 01:00] VITALS: BP 126/82; PULSE 89; RESP 17; TEMP 97.7; O2SAT 90
[2024-03-26 05:00] VITALS: BP 122/61; PULSE 87; RESP 17; TEMP 97.7; O2SAT 94
[2024-03-26 07:05] LABS: Basophils # (auto) 0 10 ^3/uL (0-0.2); Basophils % (auto) 0.3 % (0.0-2.0); Eosinophils # (auto) 0.1 10 ^3/uL (0-0.8); Eosinophils % (auto) 1.6 % (0.0-7.0); Hematocrit 28.4 % (41.0-53.0); Hemoglobin 9.7 g/dL (13.5-17.5); Lymphocytes # (auto) 0.8 10 ^3/uL (0.4-5.4); Lymphocytes % (auto) 9.6 % (10.0-50.0); Mean Corpuscular Hemoglobin 29.5 pg (28.0-32.0); Mean Corpuscular Hgb Conc. 34.1 g/dL (32.0-36.0); Mean Corpuscular Volume 86.5 fL (80.0-100.0); Monocytes # (auto) 0.7 10 ^3/uL (0-1.3); Neutrophils # (auto) 6.9 10 ^3/uL (1.6-8.6); Neutrophils % (auto) 80.5 % (37.0-80.0); Red Blood Cells 3.29 10^6/uL (4.5-5.90); Red Cell Distribution Width 17.5 % (11.8-14.3); White Blood Cell 8.6 10^3/uL (4.4-10.8)
[2024-03-26 07:46] LABS: Alkaline Phosphatase 62 U/L (46-116); Anion Gap 9 (5-15); BUN/Creatinine Ratio 16.8 (10.0-20.0); Blood Urea Nitrogen 33 mg/dL (9-23); Calcium 8.8 mg/dL (8.7-10.4); Carbon Dioxide 20 mmol/L (20-30); Chloride 114 mmol/L (98-107); Glucose 125 mg/dL (74-106); Potassium 3.5 mmol/L (3.5-5.1); Sodium 143 mmol/L (136-145)
[2024-03-26 07:48] LABS: Albumin 3.1 g/dL (3.2-4.8); Aspartate Aminotransferase 10 U/L (13-40); Bilirubin, Total 0.5 mg/dL (0.2-1.0); Phosphorus 1.7 mg/dL (2.4-5.1); Total Protein 6.1 g/dL (5.7-8.2)
[2024-03-26 07:50] LABS: Alanine Aminotransferase < 9 U/L (7-40)
[2024-03-26 08:00] VITALS: PULSE 82; PULSE 84; RESP 17; O2SAT 97
[2024-03-26 08:44] VITALS: BP 105/48; PULSE 84; RESP 17; TEMP 98; O2SAT 97
[2024-03-26 12:46] VITALS: BP 119/66; PULSE 83; RESP 16; TEMP 98.4; O2SAT 94
[2024-03-26 12:52] VITALS: BP 105/48; PULSE 84; RESP 17; TEMP 36.9; O2SAT 97
[2024-03-26] MEDS ORDERED: POTASSIUM PHOSPHATE 26.4 MEQ in SODIUM CHL 0.9% 100 ML IV ONE (14:00)
[2024-03-26] MEDS ORDERED: PPN PER PHARMACY IV NR (20:00)
== END 2024-03-26 14:15 | disposition hospice, home (50) | DRG 871 ==
LOC: EDBD 11:35 → ER 11:43 → TELE 17:07 → TELE-WESTW 22:07
PROVIDERS: ADMIT Internal Medicine Geriatric Medicine; ATTEND Internal Medicine Geriatric Medicine
PROC: 0D9670Z Drainage of Stomach with Drainage Device, Via Natural or Artificial Opening (ICD-10-PCS; principal; 2024-03-23)
PROC: 3E0436Z Introduction of Nutritional Substance into Central Vein, Percutaneous Approach (ICD-10-PCS; 2024-03-24)
DX: A41.9 Sepsis, unspecified organism (principal); G93.41 Metabolic encephalopathy; N17.0 Acute kidney failure with tubular necrosis; N13.6 Pyonephrosis; C79.51 Secondary malignant neoplasm of bone; E87.20 Acidosis, unspecified; I50.22 Chronic systolic (congestive) heart failure; I13.0 Hypertensive heart and chronic kidney disease with heart failure and stage 1 through stage 4 chronic kidney disease, or unspecified chronic kidney disease; K56.699 Other intestinal obstruction unspecified as to partial versus complete obstruction; C61 Malignant neoplasm of prostate; F02.80 Dementia in other diseases classified elsewhere, unspecified severity, without behavioral disturbance, psychotic disturbance, mood disturbance, and anxiety; G30.9 Alzheimer's disease, unspecified; G40.909 Epilepsy, unspecified, not intractable, without status epilepticus; K59.00 Constipation, unspecified; E78.5 Hyperlipidemia, unspecified; K21.9 Gastro-esophageal reflux disease without esophagitis; N13.70 Vesicoureteral-reflux, unspecified; E11.22 Type 2 diabetes mellitus with diabetic chronic kidney disease; N18.32 Chronic kidney disease, stage 3b; Z74.01 Bed confinement status; Z51.5 Encounter for palliative care; Z83.3 Family history of diabetes mellitus; Z82.0 Family history of epilepsy and other diseases of the nervous system; Z86.711 Personal history of pulmonary embolism; Z85.46 Personal history of malignant neoplasm of prostate
CPT/HCPCS: 36415; 70450; 74176; 80053; 80069; 81001; 82607; 82962; 83605; 83735; 84100; 84153; 84478; 84484; 85025; 85610; 85730; 87040; 87086; 93005; 95819; G0378; J2470; J2543